=== PATIENT | female | born 1970 | race Caucasian/White ===

== ENCOUNTER 2017-08-29 12:49 | Outpatient (CLI) | payer OTHER ==
--- NOTE | 2017-09-06 15:10 | MMO ---
BILATERAL MAMMOGRAMS: DATE: 08/29/17 HISTORY: Screening mammography. COMPARISON: 05/08/12 and 05/07/14. FINDINGS: Heterogeneously dense fibroglandular tissue and benign-appearing calcifications are again demonstrate d. Metallic markers in each breast suggest prior biopsies. Within the retroareolar medial aspect of the right breast, a new, partially obscured, oval 1.5 cm hyp erdense is present. No other new dominant mass or suspicious calcifications. The study was evaluated with the assistance of computer-aided detection. IMPRESSION: New, partially obscured mass within the anterior aspect of the right breast. BIRADS 0: Incomplete: Need Additional Imaging Evaluation and/or Prior Mammograms for Comparison Patient will be called to return for additional imaging consisting of diagnostic right mammogram. Son ogram should also be scheduled. The facility will notify the patient of the need for additional imaging services. POS: [facility]
== END 2017-08-29 12:50 | disposition home or self-care (01) ==
LOC: SCSMAMMO 12:49
PROVIDERS: ATTEND Family Medicine
DX: Z12.31 Encounter for screening mammogram for malignant neoplasm of breast (principal)
CPT/HCPCS: 77067

== ENCOUNTER 2017-10-04 14:53 | Outpatient (CLI) | payer OTHER | END 2017-10-04 14:54 | disposition home or self-care (01) | LOC: BICMAMMO 14:53 | PROVIDERS: ATTEND Family Medicine | DX: N63.10 Unspecified lump in the right breast, unspecified quadrant (principal); Z80.3 Family history of malignant neoplasm of breast | CPT/HCPCS: G0279 ==

== ENCOUNTER → 2017-10-14 | Day surgery (SDC) | payer OTHER | LOC: BICULT 09:23 | PROVIDERS: ATTEND Family Medicine | PROC: 0HBT3ZX Excision of Right Breast, Percutaneous Approach, Diagnostic (ICD-10-PCS; principal; 2017-10-14) | DX: D24.1 Benign neoplasm of right breast (principal) | CPT/HCPCS: 19100; 76942; 88305 ==